=== PATIENT | female | born 1960 | race Caucasian/White ===

== ENCOUNTER 2018-11-26 23:10 | Inpatient (IN) | payer OTHER ==
[2018-11-27] MEDS: METHYLPREDNISOLONE 125 MG INJ IV ×3 (00:06→22:55)
[2018-11-27] MEDS: ASPIRIN 81 MG TAB PO (00:06)
[2018-11-27] MEDS: MAGNESIUM SULFATE 2 GM/50 ML 50 ML IVPB (00:07)
[2018-11-27 00:10] LABS: ADD MAN DIFF? NO
[2018-11-27 00:11] LABS: WHITE BLOOD COUNT 11.8 10^3/ul (4.8-10.8)
[2018-11-27 00:11] LABS: BASOPHIL # 0.1 10^3/ul (0.0-0.1); BASOPHILS % 0.6 % (0.0-2.0); EOSINOPHILS # 0.9 10^3/ul (0.0-0.5); EOSINOPHILS % 7.9 % (0.0-7.0); HEMATOCRIT 39.3 % (37.0-47.0); LYMPHOCYTES # 4.8 10^3/ul (0.8-2.9); LYMPHOCYTES % 40.6 % (15.0-51.0); MEAN CORPUSCULAR HEMOGLOBIN 29.8 pg (29.0-33.0); MEAN CORPUSCULAR HGB CONC 33.1 g/dl (32.0-37.0); MEAN CORPUSCULAR VOLUME 90.1 fl (82.0-101.0); MEAN PLATELET VOLUME 10.4 fl (7.4-10.4); MONOCYTE # 0.7 10^3/ul (0.3-0.9); MONOCYTES % 5.7 % (0.0-11.0); NEUTROPHIL # 5.3 10^3/ul (1.6-7.5); NEUTROPHILS % 44.9 % (39.0-77.0); PLATELET COUNT 241 10^3/UL (140-415); RED BLOOD COUNT 4.36 10^6/ul (4.20-5.40); RED CELL DISTRIBUTION WIDTH 12.3 % (11.5-14.5)
[2018-11-27] MEDS: ALBUTEROL 0.5% (NEB) 2.5 MG/0.5 ML AMP INH (00:13)
[2018-11-27] MEDS: IPRATROPIUM (NEB) 0.5 MG/2.5 ML AMP INH (00:14)
[2018-11-27 00:38] LABS: PROTIME 11.2 Sec (11.9-14.9); PT RATIO 0.9
[2018-11-27 00:40] LABS: ANION GAP 16 (5-13); BLOOD UREA NITROGEN 13 mg/dl (7-20); CALCIUM 9.6 mg/dl (8.4-10.2); CARBON DIOXIDE 25 mmol/L (21-31); CHLORIDE 101 mmol/L (97-110); Estimated GFR > 60 mL/min (>60); GLUCOSE 151 mg/dl (70-220); SODIUM 142 mmol/L (135-144)
[2018-11-27 00:52] LABS: B-TYPE NATRIURETIC PEPTIDE 828 PG/ML (0-125)
[2018-11-27] MEDS ORDERED: ACETAMINOPHEN 325 MG TAB PO (02:30)
[2018-11-27] MEDS ORDERED: ONDANSETRON 4 MG INJ IV (02:30)
[2018-11-27 06:16] LABS: CREATINE KINASE 60 IU/L (23-200)
[2018-11-27 06:21] LABS: CK INDEX 1.9; CK-MB 1.11 ng/ml (0.0-2.4); TROPONIN-I 0.017 ng/ml (0.000-0.120)
[2018-11-27 12:28] LABS: CREATINE KINASE 54 IU/L (23-200)
[2018-11-27 12:40] LABS: CK INDEX 1.7; CK-MB 0.91 ng/ml (0.0-2.4); TROPONIN-I < 0.012 ng/ml (0.000-0.120)
[2018-11-27] MEDS: IPRATROPIUM (NEB) 0.5 MG/2.5 ML AMP HHN (13:50)
[2018-11-27] MEDS: ALBUTEROL 0.083% (NEB) 2.5 MG/3 ML AMP HHN (13:50)
[2018-11-27] MEDS ORDERED: DOCUSATE SODIUM 100 MG CAP PO (14:00)
[2018-11-27] MEDS ORDERED: NACL 0.9% 3 ML SYG IV (14:00)
[2018-11-27] MEDS ORDERED: GLUCOSE GEL 15 GRAM TUBE BUCCAL (17:00)
[2018-11-27] MEDS ORDERED: GLUCAGON 1 MG INJ IM (17:00)
[2018-11-27] MEDS ORDERED: DEXTROSE 50% 50 ML SYRINGE IV ×2 (17:00)
[2018-11-27] MEDS ORDERED: GLUCOSE GEL 15 GRAM TUBE PO ×2 (17:00)
[2018-11-27] MEDS ORDERED: ALBUTEROL/IPRATROPIUM (NEB) 3 ML AMP HHN (17:00)
[2018-11-27] MEDS ORDERED: METHYLPREDNISOLONE 40 MG INJ IV (17:00)
[2018-11-27] MEDS ORDERED: ACCU-CHEK XX (17:30)
[2018-11-27] MEDS: CEFTRIAXONE 1 GM/50 ML (PMX) 50 ML IVPB (17:42)
[2018-11-27] MEDS: INSULIN ASPART [NOVOLOG] 3 ML PEN SC ×2 (21:00→23:01)
[2018-11-27] MEDS: QUETIAPINE 25 MG TAB PO (21:00)
[2018-11-27] MEDS: LOSARTAN 25 MG TAB PO (21:21)
[2018-11-27] MEDS: NPH, HUMAN INSULIN ISOPHANE 3ML VIAL SC ×2 (22:00→23:14)
[2018-11-27] MEDS: LEVALBUTEROL (NEB) 0.63 MG/3 ML AMP HHN (23:26)
[2018-11-28] MEDS: INSULIN GLARGINE [LANTus] (100 UNITS/ML) SYG SC ×2 (00:59→21:14)
[2018-11-28] MEDS: ACCU-CHEK XX (02:00)
[2018-11-28] MEDS: LEVALBUTEROL (NEB) 0.63 MG/3 ML AMP HHN ×4 (03:23→21:02)
[2018-11-28 05:52] LABS: ADD MAN DIFF? NO
[2018-11-28] MEDS: METHYLPREDNISOLONE 125 MG INJ IV ×3 (06:07→21:45)
[2018-11-28] MEDS: NPH, HUMAN INSULIN ISOPHANE 3ML VIAL SC ×3 (06:11→21:52)
[2018-11-28] MEDS: PANTOPRAZOLE (EC) 40 MG TAB PO (06:12)
[2018-11-28 06:23] LABS: BASOPHILS % 0.1 % (0.0-2.0); HEMATOCRIT 37.8 % (37.0-47.0); HEMOGLOBIN 12.4 g/dl (12.0-16.0); LYMPHOCYTES # 1.3 10^3/ul (0.8-2.9); LYMPHOCYTES % 10.4 % (15.0-51.0); MEAN CORPUSCULAR HEMOGLOBIN 29.6 pg (29.0-33.0); MEAN CORPUSCULAR HGB CONC 32.8 g/dl (32.0-37.0); MEAN CORPUSCULAR VOLUME 90.2 fl (82.0-101.0); MEAN PLATELET VOLUME 11.1 fl (7.4-10.4); MONOCYTE # 0.2 10^3/ul (0.3-0.9); MONOCYTES % 1.7 % (0.0-11.0); NEUTROPHIL # 10.5 10^3/ul (1.6-7.5); NEUTROPHILS % 87.4 % (39.0-77.0); PLATELET COUNT 236 10^3/UL (140-415); RED BLOOD COUNT 4.19 10^6/ul (4.20-5.40); RED CELL DISTRIBUTION WIDTH 12.3 % (11.5-14.5)
[2018-11-28 06:50] LABS: ANION GAP 15 (5-13); BLOOD UREA NITROGEN 16 mg/dl (7-20); CALCIUM 9.4 mg/dl (8.4-10.2); CARBON DIOXIDE 26 mmol/L (21-31); CHLORIDE 100 mmol/L (97-110); Estimated GFR > 60 mL/min (>60); GLUCOSE 339 mg/dl (70-220); POTASSIUM 4.4 mmol/L (3.5-5.1); SODIUM 141 mmol/L (135-144)
[2018-11-28] MEDS: ASPIRIN (EC) 81 MG TAB PO (08:28)
[2018-11-28] MEDS: LOSARTAN 25 MG TAB PO ×2 (08:28→21:04)
[2018-11-28] MEDS: SERTRALINE 100 MG TAB PO (08:29)
[2018-11-28] MEDS: AMLODIPINE 5 MG TAB PO (08:29)
[2018-11-28] MEDS: INSULIN ASPART [NOVOLOG] 3 ML PEN SC ×5 (08:41→21:15)
[2018-11-28] MEDS: ENOXAPARIN 40 MG/0.4 ML SYG SC (08:41)
[2018-11-28] MEDS ORDERED: glyBURIDE 5 MG TAB PO (09:00)
[2018-11-28] MEDS: CEFTRIAXONE 1 GM/50 ML (PMX) 50 ML IVPB (17:07)
[2018-11-28] MEDS: QUETIAPINE 25 MG TAB PO (21:00)
[2018-11-29] MEDS: LEVALBUTEROL (NEB) 0.63 MG/3 ML AMP HHN ×5 (01:54→20:45)
[2018-11-29] MEDS: ACCU-CHEK XX (02:00)
[2018-11-29] MEDS: METHYLPREDNISOLONE 125 MG INJ IV ×3 (05:42→21:38)
[2018-11-29] MEDS: NPH, HUMAN INSULIN ISOPHANE 3ML VIAL SC ×2 (06:24→15:24)
[2018-11-29] MEDS: PANTOPRAZOLE (EC) 40 MG TAB PO (06:27)
[2018-11-29] MEDS: SERTRALINE 100 MG TAB PO (09:12)
[2018-11-29] MEDS: AMLODIPINE 5 MG TAB PO (09:12)
[2018-11-29] MEDS: LOSARTAN 25 MG TAB PO ×2 (09:12→20:35)
[2018-11-29] MEDS: ASPIRIN (EC) 81 MG TAB PO (09:12)
[2018-11-29] MEDS: INSULIN ASPART [NOVOLOG] 3 ML PEN SC ×7 (09:22→21:43)
[2018-11-29] MEDS: ENOXAPARIN 40 MG/0.4 ML SYG SC (09:22)
[2018-11-29] MEDS: REGADENOSON 0.4 MG/5 ML SYG (14:20)
[2018-11-29] MEDS: CEFTRIAXONE 1 GM/50 ML (PMX) 50 ML IVPB (18:40)
[2018-11-29] MEDS: QUETIAPINE 25 MG TAB PO (20:35)
[2018-11-29] MEDS: INSULIN GLARGINE [LANTus] (100 UNITS/ML) SYG SC (21:42)
[2018-11-30] MEDS: LEVALBUTEROL (NEB) 0.63 MG/3 ML AMP HHN ×4 (01:18→20:48)
[2018-11-30] MEDS: NPH, HUMAN INSULIN ISOPHANE 3ML VIAL SC ×4 (01:35→21:56)
[2018-11-30] MEDS: ACCU-CHEK XX (02:00)
[2018-11-30] MEDS: METHYLPREDNISOLONE 125 MG INJ IV ×3 (06:00→21:43)
[2018-11-30] MEDS: PANTOPRAZOLE (EC) 40 MG TAB PO (06:01)
[2018-11-30 06:39] LABS: ANION GAP 13 (5-13); BLOOD UREA NITROGEN 21 mg/dl (7-20); CALCIUM 9.5 mg/dl (8.4-10.2); CARBON DIOXIDE 25 mmol/L (21-31); CHLORIDE 104 mmol/L (97-110); CREATININE 0.57 mg/dl (0.44-1.00); Estimated GFR > 60 mL/min (>60); GLUCOSE 280 mg/dl (70-220); POTASSIUM 4.4 mmol/L (3.5-5.1); SODIUM 142 mmol/L (135-144)
[2018-11-30] MEDS: INSULIN ASPART [NOVOLOG] 3 ML PEN SC ×7 (08:00→20:25)
[2018-11-30] MEDS: SERTRALINE 100 MG TAB PO (08:13)
[2018-11-30] MEDS: ASPIRIN (EC) 81 MG TAB PO (08:13)
[2018-11-30] MEDS: LOSARTAN 25 MG TAB PO ×2 (08:13→21:43)
[2018-11-30] MEDS: ENOXAPARIN 40 MG/0.4 ML SYG SC (08:28)
[2018-11-30] MEDS: LINAGLIPTIN 5 MG TABLET PO (11:55)
[2018-11-30] MEDS: FUROSEMIDE 40 MG INJ IV (14:10)
[2018-11-30] MEDS: ACETYLCYSTEINE 20% 4 ML VIAL NEB ×2 (14:23→20:49)
[2018-11-30] MEDS: CEFTRIAXONE 1 GM/50 ML (PMX) 50 ML IVPB (17:12)
[2018-11-30] MEDS: INSULIN GLARGINE [LANTus] (100 UNITS/ML) SYG SC (20:26)
[2018-11-30] MEDS: QUETIAPINE 25 MG TAB PO (21:43)
[2018-12-01] MEDS: ACETYLCYSTEINE 20% 4 ML VIAL NEB ×4 (01:08→19:43)
[2018-12-01] MEDS: LEVALBUTEROL (NEB) 0.63 MG/3 ML AMP HHN ×4 (01:08→19:42)
[2018-12-01] MEDS: ACCU-CHEK XX (01:45)
[2018-12-01 05:26] LABS: ADD MAN DIFF? NO
[2018-12-01 05:29] LABS: BASOPHILS % 0.1 % (0.0-2.0); HEMATOCRIT 38.8 % (37.0-47.0); LYMPHOCYTES # 3.4 10^3/ul (0.8-2.9); LYMPHOCYTES % 22.3 % (15.0-51.0); MEAN CORPUSCULAR HGB CONC 33.5 g/dl (32.0-37.0); MEAN CORPUSCULAR VOLUME 89.4 fl (82.0-101.0); MONOCYTES % 6.3 % (0.0-11.0); NEUTROPHIL # 10.7 10^3/ul (1.6-7.5); NEUTROPHILS % 70.5 % (39.0-77.0); PLATELET COUNT 256 10^3/UL (140-415); RED BLOOD COUNT 4.34 10^6/ul (4.20-5.40); RED CELL DISTRIBUTION WIDTH 12.4 % (11.5-14.5)
[2018-12-01 05:29] LABS: WHITE BLOOD COUNT 15.2 10^3/ul (4.8-10.8)
[2018-12-01] MEDS: METHYLPREDNISOLONE 125 MG INJ IV (05:55)
[2018-12-01] MEDS: PANTOPRAZOLE (EC) 40 MG TAB PO (05:55)
[2018-12-01 05:57] LABS: ANION GAP 11 (5-13); BLOOD UREA NITROGEN 25 mg/dl (7-20); CALCIUM 9.5 mg/dl (8.4-10.2); CARBON DIOXIDE 27 mmol/L (21-31); CHLORIDE 103 mmol/L (97-110); CREATININE 0.68 mg/dl (0.44-1.00); Estimated GFR > 60 mL/min (>60); GLUCOSE 151 mg/dl (70-220); POTASSIUM 3.5 mmol/L (3.5-5.1); SODIUM 141 mmol/L (135-144)
[2018-12-01] MEDS: NPH, HUMAN INSULIN ISOPHANE 3ML VIAL SC ×3 (06:09→22:20)
[2018-12-01] MEDS: INSULIN ASPART [NOVOLOG] 3 ML PEN SC ×7 (07:34→21:13)
[2018-12-01] MEDS: SERTRALINE 100 MG TAB PO (08:32)
[2018-12-01] MEDS: FUROSEMIDE 20 MG TAB PO (08:32)
[2018-12-01] MEDS: LOSARTAN 25 MG TAB PO ×2 (08:33→21:01)
[2018-12-01] MEDS: LINAGLIPTIN 5 MG TABLET PO (08:33)
[2018-12-01] MEDS: ASPIRIN (EC) 81 MG TAB PO (08:33)
[2018-12-01] MEDS: ENOXAPARIN 40 MG/0.4 ML SYG SC (08:38)
[2018-12-01] MEDS: ONDANSETRON 4 MG INJ IV (10:27)
[2018-12-01] MEDS: METHYLPREDNISOLONE 40 MG INJ IV ×2 (14:10→21:19)
[2018-12-01] MEDS: CEFTRIAXONE 1 GM/50 ML (PMX) 50 ML IVPB (17:15)
[2018-12-01] MEDS: QUETIAPINE 25 MG TAB PO (20:58)
[2018-12-01] MEDS: INSULIN GLARGINE [LANTus] (100 UNITS/ML) SYG SC (21:14)
[2018-12-02] MEDS: LEVALBUTEROL (NEB) 0.63 MG/3 ML AMP HHN (01:47)
[2018-12-02] MEDS: ACETYLCYSTEINE 20% 4 ML VIAL NEB ×2 (01:48→09:11)
[2018-12-02] MEDS: ACCU-CHEK XX (01:58)
[2018-12-02] MEDS: METHYLPREDNISOLONE 40 MG INJ IV ×2 (06:27→14:53)
[2018-12-02] MEDS: PANTOPRAZOLE (EC) 40 MG TAB PO (06:27)
[2018-12-02] MEDS: NPH, HUMAN INSULIN ISOPHANE 3ML VIAL SC ×2 (06:36→15:20)
[2018-12-02] MEDS: INSULIN ASPART [NOVOLOG] 3 ML PEN SC ×4 (07:43→11:39)
[2018-12-02] MEDS: ASPIRIN (EC) 81 MG TAB PO (08:10)
[2018-12-02] MEDS: LINAGLIPTIN 5 MG TABLET PO (08:10)
[2018-12-02] MEDS: SERTRALINE 100 MG TAB PO (08:10)
[2018-12-02] MEDS: LOSARTAN 25 MG TAB PO (08:11)
[2018-12-02] MEDS: FUROSEMIDE 20 MG TAB PO (08:11)
[2018-12-02] MEDS: ACETAMINOPHEN 325 MG TAB PO (08:12)
[2018-12-02] MEDS: ONDANSETRON 4 MG INJ IV (08:12)
[2018-12-02 08:15] LABS: ADD MAN DIFF? NO
[2018-12-02 08:19] LABS: BASOPHILS % 0.1 % (0.0-2.0); EOSINOPHILS % 0.1 % (0.0-7.0); HEMATOCRIT 43.2 % (37.0-47.0); HEMOGLOBIN 14.3 g/dl (12.0-16.0); LYMPHOCYTES # 3.1 10^3/ul (0.8-2.9); LYMPHOCYTES % 19.2 % (15.0-51.0); MEAN CORPUSCULAR HEMOGLOBIN 29.8 pg (29.0-33.0); MEAN CORPUSCULAR HGB CONC 33.1 g/dl (32.0-37.0); MEAN PLATELET VOLUME 10.7 fl (7.4-10.4); MONOCYTE # 0.8 10^3/ul (0.3-0.9); MONOCYTES % 4.8 % (0.0-11.0); NEUTROPHIL # 11.9 10^3/ul (1.6-7.5); NEUTROPHILS % 74.5 % (39.0-77.0); PLATELET COUNT 295 10^3/UL (140-415); RED CELL DISTRIBUTION WIDTH 12.5 % (11.5-14.5)
[2018-12-02] MEDS: ENOXAPARIN 40 MG/0.4 ML SYG SC (08:24)
[2018-12-02 08:40] LABS: ANION GAP 12 (5-13); BLOOD UREA NITROGEN 25 mg/dl (7-20); CALCIUM 9.6 mg/dl (8.4-10.2); CARBON DIOXIDE 25 mmol/L (21-31); CHLORIDE 102 mmol/L (97-110); CREATININE 0.69 mg/dl (0.44-1.00); Estimated GFR > 60 mL/min (>60); GLUCOSE 156 mg/dl (70-220); POTASSIUM 4.5 mmol/L (3.5-5.1); SODIUM 139 mmol/L (135-144)
== END 2018-12-02 17:00 | disposition home or self-care (01) | DRG 191 ==
LOC: E/R 23:10 → 6WM 11-27 02:10
DX: J44.1 Chronic obstructive pulmonary disease with (acute) exacerbation (principal); Z68.41 Body mass index [BMI] 40.0-44.9, adult; E66.9 Obesity, unspecified; F32.9 Major depressive disorder, single episode, unspecified; E78.5 Hyperlipidemia, unspecified; I10 Essential (primary) hypertension; I44.7 Left bundle-branch block, unspecified; R07.81 Pleurodynia; E11.65 Type 2 diabetes mellitus with hyperglycemia; I45.81 Long QT syndrome
CPT/HCPCS: 36415; 71045; 78452; 80048; 82550; 82553; 82962; 83036; 83880; 84484; 84703; 85025; 85610; 93005; 93017; 93306; 94640; 94644; 94664; 96374; 96375; 99285-25

== ENCOUNTER 2019-01-12 12:18 | Emergency (ER) | payer OTHER | END 2019-01-12 15:14 | disposition home or self-care (01) | LOC: FTE 12:18 | DX: R05 Cough (principal); J44.9 Chronic obstructive pulmonary disease, unspecified; E11.9 Type 2 diabetes mellitus without complications; Z79.4 Long term (current) use of insulin; Z79.82 Long term (current) use of aspirin | CPT/HCPCS: 71046; 99283-25 ==